=== PATIENT | female | born 2000 | race Caucasian/White ===

== ENCOUNTER 2023-03-04 13:02 | Inpatient (IN) | payer OTHER ==
[~2023-03-04] VITALS: Ht 170.2 cm; Wt 86.6 kg
--- NOTE | ~2023-03-04 | OR ---
[facility] [address] [place], [place] [address] Draft DATE OF OPERATION: 03/05/2023 SURGEON: Rodney Blanchard DO PREOPERATIVE DIAGNOSES: 1. Intrauterine at 40 weeks' gestation. 2. Failure to progress. 3. Persistent occiput posterior position. POSTOPERATIVE DIAGNOSES: 1. Intrauterine at 40 weeks' gestation. 2. Failure to progress. 3. Persistent occiput posterior position. PROCEDURES PERFORMED: Primary low transverse delivery. HAULPAK DRIVER: Inez Reeder MD ANESTHESIA: Epidural with inadequate operative anesthesia requiring general anesthetic. Postoperative TAP block per Anesthesia. ESTIMATED BLOOD LOSS: 700 mL. COMPLICATIONS: None. DRAINS: Rodriguez to gravity. SPECIMENS: Cord blood for routine analysis. FINDINGS: Delivery of viable male , 9 pounds 6 ounces with Apgars of 8 and 9 in the direct OP position with caput. Meconium-stained amniotic fluid and nuchal x1 loose. Normal tubes, ovaries, and uterus. PATIENT NAME: KURTIS WHITING OPERATIVE REPORT DATE OF : [birth year] REPORT #: [id number] PHYSICIAN: RODNEY BLANCHARD DO (JD) PCP: NO PRIMARY CARE PHYSICIAN REPORT IS CONFIDENTIAL AND NOT TO BE RELEASED WITHOUT AUTHORIZATION [facility] [address] [place], [place] [address] Draft INDICATIONS: Mrs. Whiting is a very pleasant 23-year-old, G1, P0, with IUP of 40 weeks and zero days' gestation, who presented to Labor and Delivery in spontaneous labor. She was admitted at 4 cm and artificial rupture of membranes was performed for moderate amount of meconium-stained fluid. The patient made very slow progression despite frequent contractions. IUPC was placed and contractions were noted to be adequate. LOP position was noted and maternal repositioning was performed to encourage descent and cervical dilation. Epidural was kindly placed by Anesthesia. Despite efforts to encourage rotation, OP position remained and [id number] cervical dilation was noted with significant increase in cervical edema. After many hours of labor, decision was made to proceed with primary low transverse delivery. Risks, benefits, and alternatives were discussed in detail with the patient and partner. The patient understands and wishes to proceed with the procedure. DESCRIPTION OF PROCEDURE: The patient was taken to the operating room, where a time-out was performed to confirm correct patient and correct procedure. Epidural was bolused, but was unable to be adequate for operative anesthesia and decision was made to proceed with general anesthetic. The patient was prepped and draped in the supine position with a bump on the right hip. ICPs were on and running and Rodriguez catheter had previously been inserted. Once the patient was prepared, general anesthesia was adequately established and a Pfannenstiel skin incision was made using a surgical scalpel. Incision was carried down to the fascia, where the fascia was nicked in the midline. Fascial incision was extended bilaterally using curved Mcdonnell scissors. Fascia was grasped with Peng's, elevated, and the underlying rectus dissected off bluntly and sharply. The pair of the rectus was divided in the midline and peritoneum was divided bluntly. Peritoneal incision was extended cephalad and caudad using blunt dissection. Agapito self retractor was placed and the lower uterine segment identified. Hysterotomy was performed using a surgical scalpel and hysterotomy was extended bilaterally using blunt dissection. The surgeon's hand was then placed in the uterine cavity. The head flexed and delivered in the OP position and nuchal cord x1 was identified. The was delivered easily with the assistance of fundal pressure and was vigorous and cried upon delivery. Cord blood was doubly clamped and cut and the handed to the waiting pediatric team for further care. The placenta was expressed, intact with a centrally inserted three-vessel cord. The uterine cavity was cleared of any remaining products of conception or clot. Pitocin was administered per protocol. Hysterotomy was repaired using 0-Monocryl in two layers, the first being a running locked layer and the second being a running imbricating layer in a vertical manner. Excellent hemostasis was appreciated. Pelvis was irrigated, found to be hemostatic and tubes and ovaries were examined and found to be normal. Agapito self retractor was removed. Peritoneum was reapproximated using 2-0 Vicryl in a running nonlocked manner. Rectus was made PATIENT NAME: KURTIS WHITING OPERATIVE REPORT DATE OF : 98 REPORT #: [id number] PHYSICIAN: RODNEY BLANCHARD (TABITHA) DO PCP: NO PRIMARY CARE PHYSICIAN REPORT IS CONFIDENTIAL AND NOT TO BE RELEASED WITHOUT AUTHORIZATION [id number] [place], [place] [address] Draft hemostatic with judicious use of Bovie electrocautery and with irrigation. The rectus was plicated loosely in the midline with three interrupted sutures of 0-Vicryl. The fascia was reapproximated using 0-Vicryl in a running nonlocked manner. Subcu was irrigated, made hemostatic using judicious use of Bovie electrocautery. Skin was reapproximated using surgical niya. The uterus was Crede'd for scant amount of blood. The patient was remained in the OR for postoperative TAP blocks. Sponge, needle, and instrument counts correct x2 at the end of the procedure. Dr. Reeder was present and participated in all portions of the procedure. Rodney Blanchard DO JDW/MODL /[id number] Copies: ~ PATIENT NAME: KURTIS WHITING OPERATIVE REPORT DATE OF : 98 REPORT #: [id number] PHYSICIAN: RODNEY BLANCHARD DO (JD) PCP: NO PRIMARY CARE PHYSICIAN REPORT IS CONFIDENTIAL AND NOT TO BE RELEASED WITHOUT AUTHORIZATION
[2023-03-04 13:48] VITALS: BP 121/63
[2023-03-04 14:24] LABS: HEMATOCRIT 39.9 % (35.0-50.0); HEMOGLOBIN 13.4 g/dL (12.0-18.0); MCH 30.8 (27-36); MCHC 33.5 g/dl (30-36); RBC 4.34 M/ul (4.3-5.7); RDW 13.8 (10.5-15.0)
[2023-03-04 14:32] LABS: AMPHETAMINES, UR NEGATIVE (NEGATIVE); BARBITURATES, UR NEGATIVE (NEGATIVE); BENZODIAZEPINES, UR NEGATIVE (NEGATIVE); BUPRENORPHINE,UR NEGATIVE (NEGATIVE); COCAINE, UR NEGATIVE (NEGATIVE); MARIJUANA (THC), UR NEGATIVE (NEGATIVE); MDMA, UR NEGATIVE (NEGATIVE); METHADONE, UR NEGATIVE (NEGATIVE); METHAMPHETAMINE, UR NEGATIVE (NEGATIVE); OPIATES, UR NEGATIVE (NEGATIVE); OXYCODONE, UR NEGATIVE (NEGATIVE); PHENCYCLIDINE, UR NEGATIVE (NEGATIVE); TRICYCLIC ANTIDEPRESSANT, UR NEGATIVE (NEGATIVE)
[2023-03-04 15:03] LABS: ABO A; ANTIBODY SCREEN NEGATIVE; RH POSITIVE
--- NOTE | 2023-03-04 22:15 | PR ---
[facility] [address] [place], [place] [address] Signed Progress Notes IP Datetime Report Generated by CPN: 03/04/2023 22:15 PROGRESS NOTES: [id number] Impression: Reassuring Heart Rate Other Impressions: Slow progression; LOP position Procedures: Intrauterine Pressure Catheter; Scalp Electrode; Sterile Vag Exam Plan: Continue Present Management; Anesthesia Consult Other Plans: maternal repositioning VITAL SIGNS: [id number] Vital Signs: Reviewed EXAM: [id number] Dilatation: 4.0 Effacement: 90 Station: -2 Contractions: q 1-2 min MEMBRANES: [id number] Comments: Pt seen and examined. Becoming more uncomfortable despite epidural. LOP position noted on SVE. IUPC and FSE placed. Discussed maternal repositioning / peanut ball / etc to encourage rotation to OA positions. Anesthesia en route to evaluate for rebolus. FETUS A: [id number] FHR Baseline: 140 Variability: Moderate 6-25bpm Accelerations: 15X15 Decelerations: None FHR Category: Category I Presentation: Vertex Comments on Fetus A: No evidence of metabolic acidosis FETUS B: [id number] Signing Physician: Rodney Blanchard DO Copies: ~ *Electronically Signed* 03/04/23 6838 RODNEY BLANCHARD (TABITHA) DO PATIENT NAME: KURTIS FRENCH PROGRESS NOTE DATE OF : 98 PHYSICIAN: RODNEY BLANCHARD (JD) DO RPT #: [id number] REPORT IS CONFIDENTIAL AND NOT TO BE RELEASED WITHOUT AUTHORIZATION
--- NOTE | 2023-03-05 01:08 | PR ---
[facility] [address] [place], [place] [address] Signed Progress Notes IP Datetime Report Generated by MAYRA: 03/05/2023 01:08 PROGRESS NOTES: [id number] Impression: Reassuring Heart Rate Other Impressions: No cervical dilation and now cervical edema Procedures: Sterile Vag Exam Plan: Continue Present Management; Anesthesia Consult Other Plans: IV benadryl, maternal repositioning Informed Consent Obtain: Vaginal Delivery; Section Delivery; Risks, Benefits and Alternatives Discussed VITAL SIGNS: [id number] Vital Signs: Reviewed EXAM: [id number] Dilatation: 4.0 Effacement: 90 Station: -2 Contractions: q 1-3 min MEMBRANES: [id number] Comments: Pt seen and examined. Comfortable w/ contractions. Pt attempting multiple position changes with no changes in position of baby. New cervical edema noted on recheck. FHT reassurring (Cat 1 at this time). Discussed persistant LOP position, failure to progress, and cervical edema. Reviewed limited evidence of IV benadryl relieving cervical edema and pt woud like to try this. Discussed that if unchanged or worse edema noted at next check, would recommend primary LTCS. All questions answered. FETUS A: [id number] FHR Baseline: 140 Variability: Moderate 6-25bpm Accelerations: 15X15 Decelerations: None FHR Category: Category I Presentation: Vertex Comments on Fetus A: No evidence of metabolic acidosis FETUS B: [id number] Signing Physician: Rodney Blanchard DO *Electronically Signed* 03/05/23 0108 RODNEY BLANCHARD (TABITHA) DO PATIENT NAME: KURTIS FRENCH PROGRESS NOTE DATE OF : 98 PHYSICIAN: RODNEY BLANCHARD (JD) DO RPT #: [id number] REPORT IS CONFIDENTIAL AND NOT TO BE RELEASED WITHOUT AUTHORIZATION
--- NOTE | 2023-03-05 02:25 | PR ---
[facility] [address] [place], [place] [address] Signed Progress Notes IP Datetime Report Generated by CPN: 03/05/2023 02:24 PROGRESS NOTES: [id number] Impression: Normal Progression of Labor; Reassuring Heart Rate Other Impressions: Cervical swelling deecreased, some interval dilation Procedures: Sterile Vag Exam Plan: Continue Present Management Other Plans: IV benadryl, maternal repositioning Informed Consent Obtain: Vaginal Delivery; Section Delivery VITAL SIGNS: [id number] Vital Signs: Reviewed EXAM: [id number] Dilatation: 5.0 Effacement: 80 Station: -2 Contractions: q 2 min MEMBRANES: [id number] Comments: Pt seen and examined. Doing well. Comfortable w/ contractions. On exam, cervix with significantly less edema than on prior exam and some rotation noted. Ressassuring FHT. Discussed options and recommended continued trial of vaginal delivery. Pt understands and agrees. FETUS A: [id number] FHR Baseline: 140 Variability: Moderate 6-25bpm Accelerations: 15X15 Decelerations: None FHR Category: Category I Presentation: Vertex Comments on Fetus A: No evidence of metabolic acidosis FETUS B: [id number] Signing Physician: Rodney Blanchard DO Copies: ~ *Electronically Signed* 03/05/23 0224 RONDEY BLANCHARD (TABTIHA) DO PATIENT NAME: KURTIS FRENCH PROGRESS NOTE DATE OF : 98 PHYSICIAN: RODNEY BLANCHARD (JD) DO RPT #: [id number] REPORT IS CONFIDENTIAL AND NOT TO BE RELEASED WITHOUT AUTHORIZATION
--- NOTE | 2023-03-05 05:30 | PR ---
[facility] [facility] [address] [place], [place] [address] Signed Progress Notes IP Datetime Report Generated by CPSpeedy: 03/05/2023 05:30 PROGRESS NOTES: [id number] Impression: Arrest of Dilatation/Descent Other Impressions: Cervical swelling deecreased, some interval dilation Procedures: Sterile Vag Exam Plan: Deliver- Section Other Plans: IV benadryl, maternal repositioning Informed Consent Obtain: Section Delivery; Risks, Benefits and Alternatives Discussed VITAL SIGNS: [id number] Vital Signs: Reviewed EXAM: [id number] Dilatation: 5.0 Effacement: 80 Station: -2 Contractions: q 1-3 minutes MEMBRANES: [id number] Comments: Pt seen and examined. Pt reporting significant increase in pain with contractions despite anesthesia re-bolusing epidural. Cervix much more edematous with persistant LOP positioning noted. Recommend proceeding with primarly LTCS. Risks, benefits, and alternatives discussed and all questions answered to the best of my ability and to patient's apparent satisfaction. Pt agrees w/ C/S. Ancef 2g IV and Azithromycin 500mg IV ordered. Consents signed. OR crew notified and en route. FETUS A: [id number] FHR Baseline: 140 Variability: Minimal - >Undetectable to <=5bpm Accelerations: 15X15 Decelerations: None FHR Category: Category II Presentation: Vertex Comments on Fetus A: No evidence of metabolic acidosis FETUS B: [id number] Signing Physician: Rodney Blanchard DO *Electronically Signed* 03/05/23 0545 RODNEY BLANCHARD (TABITHA) DO PATIENT NAME: KURTIS FRENCH PROGRESS NOTE DATE OF : 98 PHYSICIAN: RODNEY BLANCHARD (JD) DO RPT #: [id number] REPORT IS CONFIDENTIAL AND NOT TO BE RELEASED WITHOUT AUTHORIZATION
--- NOTE | 2023-03-05 06:50 | NUR ---
COMB WINDER ROUNDS. 15 MINUTES. PT GONE FOR PROCEDURE. IN ROOM EVIDENCED STRON EMOTIONAL AND RELATIONAL RESOURCES. RESPONDED APPROPRIATELY TO SITUATION. PROVIDED SUPPORTIVE PRESENCE, HOSPTIALITY AND PRAYER. EXPRESS APPRECIATION.
--- NOTE | 2023-03-05 07:55 | NUR ---
03/05/23 0755 Sheets,Taylor 0729 PT ARRIVED TO PACU ON RA WITH BLADE GROOVER AT BEDSIDE. BABY ON CHEST WITH FBC RN AT BEDSIDE. SPINAL LEVEL T-8 AND PT REPORTS SMALL AMOUNT OF PAIN 4/10 AND TOLERABLE, "MORE FEEL PRESSURE." 0750 PT TALKING TO FBC RN WITH BABY CONTINUES TO REMAIN ON CHEST. PT DENIES NAUSEA.
[2023-03-05 08:01] VITALS: BP 123/77
[2023-03-06 05:44] LABS: HEMATOCRIT 31.4 % (35.0-50.0); HEMOGLOBIN 10.3 g/dL (12.0-18.0); MCH 30.6 (27-36); MCHC 32.7 g/dl (30-36); MCV 93.6 fl (81-99); RBC 3.36 M/ul (4.3-5.7); RDW 14.4 (10.5-15.0)
--- NOTE | 2023-03-06 11:02 | NUR ---
FBC ROUNDS. 15 MINUTES. PT WORKING ON NURSING BABY. SHORT VISIT TO AVOID INTERRUPTIONS. PROVIDED HOSPITALITY. PROVIDED PRAYER.
== END 2023-03-06 18:15 | disposition home or self-care (01) | DRG 788 ==
LOC: FBCO 13:02 → FBC 13:47
PROVIDERS: ADMIT Obstetrics & Gynecology; ATTEND Obstetrics & Gynecology
PROC: 10H07YZ Insertion of Other Device into Products of Conception, Via Natural or Artificial Opening (ICD-10-PCS; 2023-03-05)
PROC: 10D00Z1 Extraction of Products of Conception, Low, Open Approach (ICD-10-PCS; principal; 2023-03-05 06:00)
DX: O48.0 Post-term pregnancy (principal); Z37.0 Single live birth; Z3A.40 40 weeks gestation of pregnancy; O77.0 Labor and delivery complicated by meconium in amniotic fluid; O69.1XX0 Labor and delivery complicated by cord around neck, with compression, not applicable or unspecified; O76 Abnormality in fetal heart rate and rhythm complicating labor and delivery; O62.1 Secondary uterine inertia
CPT/HCPCS: 01961; 36415; 76942; 80307; 85027; 86850; 86900; 86901; A9270; J0131; J0456; J0690; J1100; J1200; J1650; J1885; J2001; J2405; J2590; J2795; J7121